=== PATIENT | female | born 1945 | race Caucasian/White ===

== ENCOUNTER 2022-12-03 12:56 | Outpatient (CLI) | payer MEDICARE, SELFPAY ==
--- NOTE | ~2022-12-03 | DEXA_ITS ---
Bone Density Report Name: VIVIENNE ELY Age: 77 Sex: Female Ethnicity: White Date of : 1945 Indication: postmenopausal; screening for osteoporosis; height loss; Referring Provider: Derick Sanders Study: Bone densitometry was performed. Exam Date: December 03, 2022 Accession number: [id number] Bone Density: Region BMD T-score Z-score Classification AP Spine(L2, L3, L4) 1.164 0.8 3.5 Normal Femoral Neck (Left) 0.740 -1.0 1.3 Normal Total Hip (Left) 0.881 -0.5 1.5 Normal Femoral Neck (Right) 0.712 -1.2 1.0 Osteopenia Total Hip (Right) 0.885 -0.5 1.5 Normal Femoral Neck Mean 0.726 -1.1 1.2 Osteopenia Total Hip Mean 0.883 -0.5 1.5 Normal World Health Organization criteria for BMD impression classify patients as: Normal (T-score at or above -1.0), Osteopenia (T-score between -1.0 and -2.5), or Osteoporosis (T-score at or below -2.5). 10-year Fracture Risk(1): Major Osteoporotic Fracture 12% Hip Fracture 2.5% Reported Risk Factors: [place] (), Neck BMD=0.712, BMI=27.1 (1) FRAX(R) Version 3.08. Fracture probability calculated for an untreated patient. Fracture probability may be lower if the patient has received treatment. Clinical Information Provided by Patient: Has used the following medications: HRT (i.e. estrogen/hormone therapy), Calcium Patient maximum height was 66 Menopause Age: 48 No regular weight bearing exercise Drinks caffeinated beverages Onset of menses at age 9 Number of children 2 Impression: The patient has low bone mass, based on the Right Femoral Neck T-score. Discussion: BONE DENSITY IS LOW AT ONE OR MORE SKELETAL SITES. This patient's lowest T-score is low at one or more skeletal sites. It meets the World Health Organization's (WHO) criteria for ?low bone mass? (T-score between -1.0 and -2.5). The patient's 10-year risk of fracture as calculated by FRAX is less than the threshold where pharmacological therapy is recommended by the National Osteoporosis Foundation (NOF). However, all treatment decisions require clinical judgment and consideration of individual patient factors, including patient preferences, comorbidities, previous drug use, risk factors not captured in the FRAX model (e.g., frailty, falls, vitamin D deficiency, increased bone turnover, interval significant decline in bone density) and possible under or overestimation of fracture risk by FRAX. The patient should follow a healthful lifestyle (good nutrition with adequate calcium and vitamin D, and appropriate weight-bearing exercise). Follow-Up: Consider repeating this study in 2 to 3 years to reassess this patient's status, or sooner if there is some new clinical indication. Reported by: Dr. Doe Scott on 12/03/2022 1:25:00 PM.
== END 2022-12-03 12:57 | disposition home or self-care (01) ==
LOC: CHSIMG 13:03
PROVIDERS: PCP Internal Medicine; Visit Provider Internal Medicine
DX: Z78.0 Asymptomatic menopausal state (principal); M85.89 Other specified disorders of bone density and structure, multiple sites
CPT/HCPCS: 77080

== ENCOUNTER 2023-03-22 07:02 | Outpatient (CLI) | payer MEDICARE, SELFPAY ==
[2023-03-22 07:23] LABS: Basophils Absolute Auto 0.04 K/mm3 (0.00-0.10); Basophils Percent Auto 0.9 % (0.0-1.0); Eosinophils Absolute Auto 0.32 K/mm3 (0.02-0.50); Eosinophils Percent Auto 6.8 % (1.0-6.0); Hematocrit 36.8 % (35.0-42.0); Hemoglobin 12.2 g/dL (11.7-13.8); Immature Granulocyte Absolute 0.02 K/mm3 (0.00-0.00); Immature Granulocyte Percent A 0.4 % (0.0-0.0); Lymphocytes Absolute Auto 1.32 K/mm3 (1.10-4.50); Lymphocytes Percent Auto 28.1 % (18.0-42.0); Mean Corpuscular HGB Conc 33.2 g/dL (32.0-36.0); Mean Corpuscular Hemoglobin 28.1 pg (27.0-31.0); Mean Corpuscular Volume 84.8 fL (78.0-102.0); Mean Platelet Volume 9.1 fl (9.2-11.8); Monocytes Percent Auto 8.5 % (2.0-11.0); Neutrophils Absolute Auto 2.6 K/mm3 (1.7-7.2); Neutrophils Percent Auto 55.3 % (50.0-70.0); Platelet Count Result 137 K/mm3 (150-420); Red Blood Count 4.34 M/mm3 (4.20-5.40); White Blood Count 4.7 K/mm3 (4.8-10.8)
[2023-03-22 07:24] LABS: Appearance Urine Clear (Clear); Bilirubin Urine Negative (Negative); Blood Urine Negative (Negative); Color Urine Yellow (Yellow); Glucose Urine UA Negative (Negative); Ketones Urine Trace (Negative); Leukocyte Esterase Ur 1+ (Negative); Nitrate Urine Negative (Negative); Protein Urine Negative (Negative); Urobilinogen Urine 0.2 mg/dL (0.2-1.0)
[2023-03-22 07:30] LABS: Add Urine Microscopic? YES; Bacteria Urine Trace /hpf; RBC Urine None seen /hpf (0-2); Squamous Epithelial Cell Urine Few /hpf (Few)
[2023-03-22 07:36] LABS: Creatinine Urine 177.99 mg/dL (40-278); MALB Creatinine Ratio 7.3 mg/g (0-30); Microalbumin Urine Random < 13.0 mg/L
[2023-03-22 07:38] LABS: Hemoglobin A1C 5.9 % (<5.7)
[2023-03-22 08:31] LABS: Alanine Aminotransferase 23 U/L (14-59); Albumin Level 3.7 g/dL (3.4-5.0); Alkaline Phosphatase 110 U/L (46-116); Anion Gap 8 mmol/L (8-16); Aspartate Amino Transferase 15 U/L (15-37); Bilirubin,Total 0.3 mg/dL (0.00-1.00); Blood Urea Nitrogen 22 mg/dL (7-18); Calcium 9.2 mg/dL (8.5-10.1); Carbon Dioxide 30 mmol/L (21-32); Chloride 107 mmol/L (98-108); Cholesterol 133 mg/dL (0-200); Estimated Glomerular Filt Rate 45; Glucose 159 mg/dL (70-99); HDL Direct 50 mg/dL (40-60); LDL Cholesterol Calculated 70 mg/dL (<130); Osmolality Calculated 306 mOsm/kg (285-295); Potassium 4.1 mmol/L (3.5-5.1); Sodium 145 mmol/L (136-145); Thyroid Stimulating Hormone 4.35 uIU/mL (0.36-3.74); Total Protein 6.2 g/dL (6.4-8.2); Triglycerides 67 mg/dL (0-150)
== END 2023-03-22 07:03 | disposition home or self-care (01) ==
LOC: CHSLAB 07:06
PROVIDERS: PCP Internal Medicine; Visit Provider Internal Medicine
DX: E11.9 Type 2 diabetes mellitus without complications (principal); E78.5 Hyperlipidemia, unspecified; R23.3 Spontaneous ecchymoses
CPT/HCPCS: 36415; 80053; 80061; 81001; 82043; 83036; 84443; 85025

== ENCOUNTER 2023-05-21 11:37 | Outpatient (CLI) | payer MEDICARE, SELFPAY | END 2023-05-21 11:38 | disposition home or self-care (01) | LOC: CHSLAB 11:40 | PROVIDERS: PCP Internal Medicine; Visit Provider Specialist | DX: C44.329 Squamous cell carcinoma of skin of other parts of face (principal) | CPT/HCPCS: 88305 ==

== ENCOUNTER 2023-07-16 10:29 | Outpatient (CLI) | payer MEDICARE, SELFPAY ==
[2023-07-16 10:44] LABS: Basophils Absolute Auto 0.04 K/mm3 (0.00-0.10); Basophils Percent Auto 0.8 % (0.0-1.0); Eosinophils Absolute Auto 0.16 K/mm3 (0.02-0.50); Eosinophils Percent Auto 3.2 % (1.0-6.0); Hematocrit 40.1 % (35.0-42.0); Hemoglobin 13.1 g/dL (11.7-13.8); Immature Granulocyte Absolute 0.01 K/mm3 (0.00-0.00); Immature Granulocyte Percent A 0.2 % (0.0-0.0); Lymphocytes Absolute Auto 1.35 K/mm3 (1.10-4.50); Lymphocytes Percent Auto 27.3 % (18.0-42.0); Mean Corpuscular HGB Conc 32.7 g/dL (32.0-36.0); Mean Corpuscular Hemoglobin 28.3 pg (27.0-31.0); Mean Corpuscular Volume 86.6 fL (78.0-102.0); Mean Platelet Volume 8.8 fl (9.2-11.8); Monocytes Absolute Auto 0.42 K/mm3 (0.10-0.90); Monocytes Percent Auto 8.5 % (2.0-11.0); Platelet Count Result 139 K/mm3 (150-420); Red Blood Count 4.63 M/mm3 (4.20-5.40)
[2023-07-16 10:52] LABS: Hemoglobin A1C 6.5 % (<5.7)
[2023-07-16 11:43] LABS: Alanine Aminotransferase 24 U/L (14-59); Albumin Level 3.7 g/dL (3.4-5.0); Alkaline Phosphatase 102 U/L (46-116); Anion Gap 4 mmol/L (8-16); Aspartate Amino Transferase 22 U/L (15-37); Bilirubin,Total 0.4 mg/dL (0.00-1.00); Blood Urea Nitrogen 26 mg/dL (7-18); Calcium 9.6 mg/dL (8.5-10.1); Carbon Dioxide 35 mmol/L (21-32); Chloride 106 mmol/L (98-108); Estimated Glomerular Filt Rate 41; Glucose 113 mg/dL (70-99); Osmolality Calculated 305 mOsm/kg (285-295); Potassium 4.4 mmol/L (3.5-5.1); Sodium 145 mmol/L (136-145); Total Protein 6.5 g/dL (6.4-8.2)
== END 2023-07-16 10:30 | disposition home or self-care (01) ==
PROVIDERS: PCP Internal Medicine; Visit Provider Internal Medicine
DX: R53.83 Other fatigue (principal); E11.9 Type 2 diabetes mellitus without complications
CPT/HCPCS: 36415; 80053; 83036; 85025

== ENCOUNTER 2024-09-03 07:43 | Outpatient (CLI) | payer MEDICARE, SELFPAY ==
--- NOTE | ~2024-09-03 | US_ITS ---
RIGHT UPPER QUADRANT ABDOMINAL ULTRASOUND (Doppler ultrasound interrogation techniques used as needed for this exam.) Ordering provider: Derick Sanders MD History: . EPIGASTRIC PAIN . Comparison: None. FINDINGS: PANCREAS: Normal echotexture and size. PORTAL VEIN: Hepatopedal flow demonstrated. LIVER: Normal size and echotexture. No focal hepatic lesions or perihepatic fluid collections are pritesh ntified. BILIARY DUCTS: No intra or extrahepatic biliary dilation. Common bile duct measures 6.6 mm in diamete r which is normal for patient's age. GALLBLADDER: Normal. No stones, sludge, gallbladder wall thickening or pericholecystic fluid. Negati ve sonographic Brown's sign. FREE FLUID: None visualized within the upper abdomen. IMPRESSION: normal right upper quadrant ultrasound. Reviewed, dictated and finalized at location A. NSION WAREHOUSE SUPERVISOR
== END 2024-09-03 07:44 | disposition home or self-care (01) ==
LOC: CHSIMG 07:45
PROVIDERS: PCP Internal Medicine; Visit Provider Internal Medicine
DX: R10.13 Epigastric pain (principal)
CPT/HCPCS: 76705

== ENCOUNTER 2024-10-29 07:33 | Outpatient (CLI) | payer MEDICARE, SELFPAY ==
--- OUTSIDE RECORDS SUMMARY | 2024-10-29 07:38 | XMS_ITS | Clinical Summary ---
Author Organization [facility] Address [address] [place] [id number] Care Team Providers Care Paper Sample Clerk Name Role Phone Jose Quiñonez MD Primary Care Provider Allergies Active Allergy Reactions Criticality Noted Date Comments Sulfa Antibiotics Rash Low 09/10/2019 Medications OZEMPIC 0.25/0.5 MG/DOSE 2 MG/1.5ML injection (PEN) 0.5 mg every 7 days. 0 Active traZODone 50 MG tablet Take 50 mg by mouth daily. 0 Active rosuvastatin 5 MG tablet Take 5 mg by mouth daily. 0 Active escitalopram 20 MG tablet Take 20 mg by mouth daily. 0 Active busPIRone 5 MG tablet Take 5 mg by mouth 2 (two) times daily. 0 Active aspirin EC (ECOTRIN) 81 MG tablet Take 81 mg by mouth daily. Active losartan (COZAAR) 50 MG tablet TAKE 1 & 1/2 TABLETS BY MOUTH DAILY 135 tablet 3 3 Active [facility] CALCIUM + D3 600-20 MG-MCG tablet Take 1 tablet by mouth 2 (two) times daily. 3 Active gabapentin (NEURONTIN) 300 MG capsule Take 300 mg by mouth 2 (two) times a day. 3 Active ferrous sulfate EC 325 (65 Fe) MG tablet Take 1 tablet by mouth every other day. Active amLODIPine (NORVASC) 2.5 MG tablet Take 2.5 mg by mouth daily. Active ferrous sulfate, 65 mg elemental, 325 (65 FE) MG tabletIndications :CKD stage 3b, GFR 30-44 ml/min ([facility]),Essenti al hypertension TAKE 1 TABLET BY MOUTH EVERY OTHER DAY 45 tablet 1 Active Active Problems Problem Noted Date Diagnosed Date Iron deficiency anemia, unsp ecified iron deficiency anemia type 10/04/2023 Osteoarthritis, unspecified osteoarthritis type, unspecified site 07/29/2023 Stage 3b chronic kidney disease 08/28/2021 Essential hypertension 08/28/2021 Diabetes mellitus without complication ([facility]) 08/28/2021 Mixed hyperlipidemia 08/28/2021 Social History Tobacco Use Types Packs/Day Years Used Date Smoking Tobacco: Former Smokeless Tobacco: Never Alcohol Use Standard Drinks/Week Comments Yes 0 (1 standard drink = 0.6 oz pur e alcohol) Comments Unknown Sex and Gender Information Value Date Recorded Sex Assigned at Not on file Legal Sex Female 10:55 PM CDT Gender Identity Not on file Sexual Orientation Not on file Last Filed Vital Signs Vital Sign Reading Time Taken Comments Blood Pressure 130/69 03/23/2024 9:15 AM CDT Pulse 66 03/23/2024 9:15 AM CDT Temperature - - Respiratory Rate 12 09/30/2023 1:38 PM TILE MASON Oxygen Saturation 98% 09/30/2023 1:38 PM TILE [place]ON Inhaled Oxygen Concentration - - Weight 71.8 kg (158 lb 6.4 oz) 03/23/2024 9:15 A M CDT Height 167.6 cm (5' 6 ) 03/23/2024 9:15 AM CDT Body Mass Index 25.57 03/23/2024 9:15 AM CDT Plan of Treatment Upcoming Encounters Date Type Department Care Team (Late st Contact Info) Description 03/01/2025 10:30 AM CDT Office Visit [facility] [place] [address] Jose Quiñonez MD [address] [place] [phone] Health Maintenance Due Date Last Done Comments Kidney Health Evaluation 1945 Hemoglobin A1C 1945 Lipid Panel 1945 Pneumococcal Vaccine: 65+ Ye ars (1 of 2 - PCV) 1949 Diabetes: Retinopathy Eye Exam 1961 DTaP, Tdap and Td Vaccines ( 1 - Tdap) 1962 Zoster Vaccines (1 of 2) 1993 Annual Medicare Wellness Visit 2008 Dexa Scan (General) 2008 RSV Immunization or 60+ Years (1 - 1-dose 75+ series) 2018 COVID-19 Vaccine (2023-2 5 season) 2024 Influenza Adult (#1) 2024 Meningococcal B Vaccine Aged Out No l onger eligible based on patient's age to complete this topic Meningococcal Vaccine Aged Out No aayush moises eligible based on patient's age to complete this topic RSV Immunizations Under 20 Months Aged Out No longer eligible based on patient's age to complete this topic Insurance AETNA AETNA Care Teams Paper Sample Clerk Relationship Specialty Start Date End Date Jose Quiñonez MD [address] [place] [phone] PCP - General FAMILY PRACTICE 08/28/21
--- OUTSIDE RECORDS SUMMARY | 2024-10-29 07:38 | XMS_ITS | Referral Summary ---
Author Organization [facility] Address [address] [place] [address] Care Team Providers Care Salvage Inspector Name Role Phone Derick Sanders MD Primary Care Provider [phone] Social History Tobacco Use Types Packs/Day Years Used Date Smoking Tobacco: Never Assessed Comments No Sex and Gender Information Value Date Recorded Sex Assigned at Not on file Legal Sex Female 10:01 AM CUSTOMER SOLUTIONS TEAMMATE Gender Identity Not on file Sexual Orientation Not on file Last Filed Vital Signs Vital Sign Reading Time Taken Comments Blood Pressure - - Pulse - - Temperature - - Respiratory Rate - - Oxygen Saturation - - Inhaled Oxygen Concentration - - Weight 77.1 kg (170 lb) 08/20/2020 1:51 PM CUSTOMER SOLUTIONS TEAMMATE Height 167.6 cm (5' 6 ) 08/20/2020 1:51 PM CUSTOMER SOLUTIONS TEAMMATE Body Mass Index 27.44 08/20/2020 1:51 PM CUSTOMER SOLUTIONS TEAMMATE Plan of Treatment Not on file Insurance [employer] [place] [address] [place] [address] CHOICE PLUS [facility] MEDICARE AETNA MEDICARE AETNA [facility] Care Teams Salvage Inspector Relationship Specialty Start Date End Date Derick Sanders MD PCP - General Internal Medicine 01/12/23
--- OUTSIDE RECORDS SUMMARY | 2024-10-29 07:38 | XMS_ITS | Encounter Summary ---
Author Organization [facility] Address [address] [place] [address] Care Team Providers Care Import Export Manager Name Role Phone Jose Quiñonez MD Primary Care Provider [phone] Encounter Details Date Type Department Care Team (Late Contact Info) Description 10/07/2023 Abstract [facility] [address] [place] [address] Jaciel Baez MD Social History Tobacco Use Types Packs/Day Years Used Date Smoking Tobacco: Former Smokeless Tobacco: Never Alcohol Use Standard Drinks/Week Comments Yes 0 (1 standard drink = 0.6 oz pur e alcohol) Comments Unknown Sex and Gender Information Value Date Recorded Sex Assigned at Not on file Legal Sex Female 10:55 PM CDT Gender Identity Not on file Sexual Orientation Not on file documented as of this encounter Plan of Treatment Upcoming Encounters Date Type Department Care Team (Late Contact Info) Description 03/01/2025 10:30 AM CDT Office Visit [facility] [address] [place] [address] Jose Quiñonez MD [address] [place] [phone] documented as of this encounter Visit Diagnoses Not on filedocumented in this encounter Care Teams Import Export Manager Relationship Specialty Start Date End Date Jose Quiñonez MD [address] [place] [phone] PCP - General FAMILY PRACTICE 08/28/21 documented as of this encounter
--- OUTSIDE RECORDS SUMMARY | 2024-10-29 07:38 | XMS_ITS | Encounter Summary ---
Author Organization [facility] Address [address] [place] [address] Care Team Providers Care Fast Food Crew Lead Name Role Phone Arash Mora MD Primary Care Provider [phone] Jose Quiñonez MD Primary Care Provider [phone] Jose Quiñonez MD Primary Care Provider Encounter Details Date Type Department Care Team (Late Contact Info) Description 01/24/2019 Abstract [facility] [address] [place] [address] , Generic Conversion, Social History Tobacco Use Types Packs/Day Years Used Date Smoking Tobacco: Never Assessed Comments Unknown Sex and Gender Information Value Date Recorded Sex Assigned at Not on file Legal Sex Female 10:55 PM CDT Gender Identity Not on file Sexual Orientation Not on file documented as of this encounter Plan of Treatment Upcoming Encounters Date Type Department Care Team (Late Contact Info) Description 03/01/2025 10:30 AM CDT Office Visit [facility] [address] [place] [address] [place] [address] Jose Quiñonez MD [address] [place] [phone] documented as of this encounter Visit Diagnoses Not on filedocumented in this encounter Care Teams Fast Food Crew Lead Relationship Specialty Start Date End Date Arash Mora MD [address] [place] [phone] PCP - General FAMILY PRACTICE 09/08/19 11/27/20 Jose Quiñonez MD [address] [place] [phone] PCP - General FAMILY PRACTICE 11/28/20 02/05/21 Jose Quiñonez MD [address] [place] [phone] PCP - General FAMILY PRACTICE 08/28/21 documented as of this encounter
--- OUTSIDE RECORDS SUMMARY | 2024-10-29 07:38 | XMS_ITS | Clinical Summary ---
Author Organization [facility] Address [address] [place] [address] Care Team Providers Care Middle [employer] Science Teacher Name Role Phone Derick Sanders MD Primary Care Provider [phone] Surgical History Surgery Date Site/Laterality Comments BREAST BIOPSY Right benign Family History Medical History Relation Name Comments Breast cancer Father Relation Name Status Comments Father Social History Tobacco Use Types Packs/Day Years Used Date Smoking Tobacco: Never Assessed Comments No Sex and Gender Information Value Date Recorded Sex Assigned at Not on file Legal Sex Female 10:01 AM MOLD BREAKER Gender Identity Not on file Sexual Orientation Not on file Obstetrics History Para Term AB IAB SAB Ectopic Multiple Livin g Live Births 2 2 2 Date Outcome GA Total Labor Labor/2nd/3rd Weight Sex Type Anes PTL Ladonna A1 A5 Name Clin Term Term Last Filed Vital Signs Vital Sign Reading Time Taken Comments Blood Pressure - - Pulse - - Temperature - - Respiratory Rate - - Oxygen Saturation - - Inhaled Oxygen Concentration - - Weight 77.1 kg (170 lb) 08/20/2020 1:51 PM MOLD BREAKER Height 167.6 cm (5' 6 ) 08/20/2020 1:51 PM MOLD BREAKER Body Mass Index 27.44 08/20/2020 1:51 PM MOLD BREAKER Plan of Treatment Health Maintenance Due Date Last Done Comments Depression Screening 1945 Fall Risk Assessment 1945 Osteoporosis Screening-Bone Density Scan 1945 Hepatitis B Screening 1961 Pneumococcal vaccine 65+ (1 of 1 - PCV) 1993 Zoster Vaccine (1 of 2) 1993 Well Visit 65+ 2008 Influenza Vaccine (#1) 2024 9, 05/28/2018, 05/06/2017 DTaP/Tdap/Td Vaccine (2 - Td or Tdap) 12/24/202803/2019 Insurance [employer] PPO POS [facility] CHOICE PLUS [facility] MEDICARE AETNA MEDICARE AETNA [facility] Care Teams [employer] Science Teacher Relationship Specialty Start Date End Date Derick Sanders MD PCP - General Internal Medicine 01/12/23
[2024-10-29 07:45] LABS: Hematocrit 40.8 % (35.0-42.0); Hemoglobin 13.2 g/dL (11.7-13.8); Mean Corpuscular HGB Conc 32.4 g/dL (32-36); Mean Corpuscular Hemoglobin 27.6 pg (27.0-31.0); Mean Corpuscular Volume 85.2 fL (78.0-102.0); Platelet Count Result 144 K/mm3 (150-420); Red Blood Count 4.79 M/mm3 (4.20-5.40); White Blood Count 4.9 K/mm3 (4.8-10.8)
[2024-10-29 09:34] LABS: Alanine Aminotransferase 11 U/L (14-59); Albumin Level 4.1 g/dL (3.4-5.0); Alkaline Phosphatase 117 U/L (46-116); Anion Gap 7 mmol/L (4-12); Aspartate Amino Transferase 11 U/L (15-37); Bilirubin,Total 0.4 mg/dL (0.00-1.00); Blood Urea Nitrogen 20 mg/dL (7-18); Calcium 9.6 mg/dL (8.5-10.1); Carbon Dioxide 30 mmol/L (21-32); Chloride 110 mmol/L (98-108); Cholesterol 156 mg/dL (0-200); Estimated Glomerular Filt Rate 38; Glucose 106 mg/dL (70-99); HDL Direct 65 mg/dL (40-60); LDL Cholesterol Calculated 81 mg/dL (<130); Osmolality Calculated 306 mOsm/kg (285-295); Potassium 4.5 mmol/L (3.5-5.1); Sodium 147 mmol/L (136-145); Total Protein 6.8 g/dL (6.4-8.2); Triglycerides 50 mg/dL (0-150)
[2024-10-29 10:32] LABS: Hemoglobin A1C 5.7 % (<5.7)
== END 2024-10-29 07:34 | disposition home or self-care (01) ==
LOC: CHSLAB 07:36
PROVIDERS: PCP Internal Medicine; Visit Provider Internal Medicine
DX: I10 Essential (primary) hypertension (principal); E11.9 Type 2 diabetes mellitus without complications; E78.5 Hyperlipidemia, unspecified
CPT/HCPCS: 36415; 80053; 80061; 83036; 85027

== ENCOUNTER 2025-05-10 08:33 | Outpatient (CLI) | payer MEDICARE, SELFPAY ==
[2025-05-10 09:07] LABS: Hematocrit 40.3 % (35.0-42.0); Hemoglobin 12.9 g/dL (11.7-13.8); Mean Corpuscular HGB Conc 32.0 g/dL (32-36); Mean Corpuscular Hemoglobin 27.4 pg (27.0-31.0); Mean Corpuscular Volume 85.6 fL (78.0-102.0); Platelet Count Result 137 K/mm3 (150-420); Red Blood Count 4.71 M/mm3 (4.20-5.40); White Blood Count 5.3 K/mm3 (4.8-10.8)
[2025-05-10 09:12] LABS: Add Urine Microscopic? YES; Appearance Urine Clear (Clear); Glucose Urine UA Negative (Negative); Leukocyte Esterase Ur 2+ (Negative); Nitrate Urine Negative (Negative); Specific Grav Ur 1.020 (1.010-1.020)
[2025-05-10 09:41] LABS: Alanine Aminotransferase 13 U/L (6-35); Albumin Level 4.4 g/dL (3.5-5.1); Alkaline Phosphatase 94 U/L (38-126); Anion Gap 6 mmol/L (4-12); Aspartate Amino Transferase 29 U/L (14-36); Bilirubin,Total 0.6 mg/dL (0.2-1.3); Blood Urea Nitrogen 22 mg/dL (7-17); Calcium 10.2 mg/dL (8.4-10.2); Carbon Dioxide 32 mmol/L (22-30); Chloride 104 mmol/L (98-107); Cholesterol 166 mg/dL (0-200); Estimated Glomerular Filt Rate 41; Glucose 118 mg/dL (65-110); HDL Direct 60 mg/dL; Hemoglobin A1C 6.0 % (<5.7); Osmolality Calculated 298 mOsm/kg (285-295); Potassium 4.5 mmol/L (3.4-5.0); Sodium 142 mmol/L (137-145); Total Protein 6.9 g/dL (6.3-8.2); Triglycerides 103 mg/dL (<150)
[2025-05-10 10:09] LABS: Thyroid Stimulating Hormone 2.910 uIU/mL (0.465-4.680)
== END 2025-05-10 08:34 | disposition home or self-care (01) ==
LOC: CHSLAB 08:35
PROVIDERS: PCP Internal Medicine; Visit Provider Internal Medicine
DX: I12.9 Hypertensive chronic kidney disease with stage 1 through stage 4 chronic kidney disease, or unspecified chronic kidney disease (principal); N18.30 Chronic kidney disease, stage 3 unspecified; E11.9 Type 2 diabetes mellitus without complications
CPT/HCPCS: 36415; 80053; 80061; 81001; 83036; 84443; 85027